=== PATIENT | female | born 1995 | race Asian ===

== ENCOUNTER 2021-08-05 07:25 | Inpatient (IN) | payer OTHER ==
[2021-08-05 08:56] VITALS: BMI 18.7
[2021-08-05 10:22] LABS: INR 0.92 (0.83-1.09); PROTHROMBIN TIME (PATIENT) 11.3 SEC (9.7-13.0)
[2021-08-05 10:25] LABS: ACTIVATED PTT 26.2 SECONDS (25.2-36.5)
[2021-08-05 10:27] LABS: BASO % 0.2 % (0-2.0); EOS % 0.9 % (0-4.5); HEMATOCRIT 38.6 % (32.4-45.2); HEMOGLOBIN 12.7 GM/dL (10.7-15.3); LYMPH % 28.5 % (8-40); MCH 26.2 pg (25.7-33.7); MCHC 32.8 g/dl (32.0-36.0); MEAN CELL VOLUME 79.9 fl (80-96); MEAN PLT VOLUME 12.4 fl (7.5-11.1); MONO % 6.8 % (3.8-10.2); NEUT % 63.6 % (42.8-82.8); PLATELET COUNT 119 10^3/uL (134-434); RBC 4.84 M/mm3 (3.60-5.2); RDW 16.2 % (11.6-15.6); WHITE BLOOD COUNT 7.7 K/mm3 (4.0-10.0)
[2021-08-05 10:40] LABS: CALCIUM 9.7 mg/dL (8.5-10.1)
[2021-08-05 10:44] LABS: CREATININE 0.4 mg/dL (0.55-1.3)
[2021-08-05 10:45] LABS: BLOOD UREA NITROGEN 6.2 mg/dL (7-18)
[2021-08-05] MEDS ORDERED: BUTORPHANOL TARTRATE 1 MG/ML VIAL IVPB PRN ×2 (10:49)
[2021-08-05] MEDS ORDERED: ELECTROLYTE-148 SOLN 1,000 ML IV SCH (11:00)
[2021-08-05] MEDS ORDERED: OXYTOCIN 30 UNITS in 0.9% NS 30 UNIT/500 ML INFUS.BAG IVPB SCH (11:00)
[2021-08-05] MEDS ORDERED: OXYTOCIN 30 UNITS in 0.9% NS 30 UNIT/500 ML INFUS.BAG IVPB ONE (11:32)
[2021-08-05] MEDS ORDERED: BUTORPHANOL TARTRATE 2 MG/ML VIAL ONE (22:21)
[2021-08-05] MEDS ORDERED: PROMETHAZINE HCL 25 MG/1 ML VIAL IVPB PRN (22:24)
[2021-08-05] MEDS ORDERED: WITCH HAZEL 50% (TUCKS) 40 PAD/JAR PAD TP PRN (23:08)
[2021-08-05] MEDS ORDERED: BENZOCAINE 28 GM HEMORRHOIDAL OINTMENT TP PRN (23:08)
[2021-08-05] MEDS ORDERED: ACETAMINOPHEN 325 MG TABLET (FP) PO PRN (23:08)
[2021-08-05] MEDS ORDERED: METHYLERGONOVINE MALEATE 0.2 MG/1 ML AMP IM PRN (23:08)
[2021-08-05] MEDS ORDERED: BISACODYL 10 MG SUPP.RECT RC PRN (23:08)
[2021-08-05] MEDS ORDERED: BENZOCAINE 20% 57 GM BOTTLE TP PRN (23:08)
[2021-08-05] MEDS ORDERED: OXYTOCIN 20 UNITS in 0.9% NS 20 UNIT/1,000 ML INFUS.BAG IV SCH (23:15)
[2021-08-06] MEDS ORDERED: LIDOCAINE HCL 1% PRESERVATIVE FREE - 30ML VIAL ONE (00:54)
[2021-08-06] MEDS ORDERED: OXYTOCIN 20 UNITS in 0.9% NS 20 UNIT/1,000 ML INFUS.BAG IV ONE (00:54)
[2021-08-06 03:21] LABS: CORD BASE EXCESS -7.5 mmol/L (0-2); CORD HCO3 19.6 mmHg (20-29); CORD PCO2 46.6 mmHg (30-78); CORD pH 7.242 (7.14-7.44)
[2021-08-06 03:22] LABS: CORD BASE EXCESS -8.2 mmol/L (0-2); CORD HCO3 21.1 mmHg (20-29); CORD PCO2 59.1 mmHg (30-78); CORD pH 7.17 (7.14-7.44)
[2021-08-06 07:09] LABS: BASO % 0.1 % (0-2.0); HEMATOCRIT 33.4 % (32.4-45.2); HEMOGLOBIN 10.7 GM/dL (10.7-15.3); MCH 25.5 pg (25.7-33.7); MEAN CELL VOLUME 79.6 fl (80-96); MEAN PLT VOLUME 11.5 fl (7.5-11.1); MONO % 5.7 % (3.8-10.2); NEUT % 81.2 % (42.8-82.8); PLATELET COUNT 90 10^3/uL (134-434); RDW 15.8 % (11.6-15.6); WHITE BLOOD COUNT 11.5 K/mm3 (4.0-10.0)
[2021-08-06] MEDS: FERROUS SO4 325 MG TABLET (FP) PO SCH ×3 (08:27→17:17)
[2021-08-06] MEDS: PRENATAL VITAMINS W/ FOLIC ACID TABLET (FP) PO SCH (10:37)
[2021-08-06] MEDS: IBUPROFEN 600 MG TABLET (FP) PO PRN ×2 (10:40→22:40)
[2021-08-06] MEDS ORDERED: FLU VACC QS2021-22(6MOS UP)/PF 60 MCG/0.5 ML SYRINGE IM ONE (11:00)
[2021-08-06] MEDS: SENNOSIDES/DOCUSATE COMBO (SENNA PLUS) TABLET (UD) PO PRN (22:40)
[2021-08-07] MEDS: FERROUS SO4 325 MG TABLET (FP) PO SCH ×3 (09:00→18:03)
[2021-08-07] MEDS: IBUPROFEN 600 MG TABLET (FP) PO PRN ×2 (10:04→21:22)
[2021-08-07] MEDS: PRENATAL VITAMINS W/ FOLIC ACID TABLET (FP) PO SCH (10:04)
[2021-08-07] MEDS: SENNOSIDES/DOCUSATE COMBO (SENNA PLUS) TABLET (UD) PO PRN (21:26)
[2021-08-08] MEDS: PRENATAL VITAMINS W/ FOLIC ACID TABLET (FP) PO SCH (10:34)
[2021-08-08] MEDS: FERROUS SO4 325 MG TABLET (FP) PO SCH ×3 (10:34→17:32)
[2021-08-08] MEDS: SENNOSIDES/DOCUSATE COMBO (SENNA PLUS) TABLET (UD) PO PRN (10:42)
[2021-08-08 10:50] VITALS: BP 102/64; PULSE 86; TEMP 97.9
== END 2021-08-08 17:15 | disposition home or self-care (01) | DRG 560 ==
LOC: JLDR 07:25 → J3W 08-06 03:17
PROVIDERS: ADMIT Obstetrics & Gynecology; ATTEND Obstetrics & Gynecology
PROC: 3E033VJ Introduction of Other Hormone into Peripheral Vein, Percutaneous Approach (ICD-10-PCS; 2021-08-05)
PROC: 10907ZC Drainage of Amniotic Fluid, Therapeutic from Products of Conception, Via Natural or Artificial Opening (ICD-10-PCS; principal; 2021-08-06)
PROC: 0W8NXZZ Division of Female Perineum, External Approach (ICD-10-PCS; 2021-08-06)
PROC: 10E0XZZ Delivery of Products of Conception, External Approach (ICD-10-PCS; 2021-08-06)
DX: O36.5930 Maternal care for other known or suspected poor fetal growth, third trimester, not applicable or unspecified (principal); Z37.0 Single live birth; O69.81X0 Labor and delivery complicated by cord around neck, without compression, not applicable or unspecified; Z3A.37 37 weeks gestation of pregnancy
CPT/HCPCS: 36415; 36600; 59409; 80048; 82803; 85025; 85610; 85730; 86780; 86850; 86900; 86901; 90686; G0008

== ENCOUNTER 2023-03-05 22:25 | Inpatient (IN) | payer OTHER ==
[2023-03-05] MEDS ORDERED: TERBUTALINE SULFATE 1 MG/1 ML VIAL SQ ONE (23:16)
[2023-03-05] MEDS ORDERED: ELECTROLYTE-148 SOLN 500 ML IV ONE (23:20)
[2023-03-05] MEDS ORDERED: BETAMET ACET/BETAMET NA PH 30 MG/5 ML VIAL ONE (23:25)
[2023-03-05] MEDS ORDERED: FENTANYL CITRATE/PF 50 MCG/ML VIAL ONE (23:33)
[2023-03-05] MEDS ORDERED: morphine SULFATE/PF 1 MG/2 ML (2cc Syringe - QUVA) ONE (23:33)
[2023-03-05] MEDS ORDERED: ePHEDrine SULFATE 50 MG/1 ML AMPULE ONE (23:42)
[2023-03-05] MEDS ORDERED: SODIUM CHLORIDE 0.9% P/F 10 ML VIAL IJ ONE (23:42)
[2023-03-05] MEDS ORDERED: CITRIC ACID/SODIUM CITRATE 30 ML UNIT-DOSE CUP PO ONE (23:45)
[2023-03-05 23:48] LABS: BASO % 0.2 % (0-2.0); EOS % 0.1 % (0-4.5); HEMATOCRIT 36.1 % (32.4-45.2); HEMOGLOBIN 11.7 GM/dL (10.7-15.3); LYMPH % 17.6 % (8-40); MCH 23.8 pg (25.7-33.7); MCHC 32.4 g/dl (32.0-36.0); MEAN CELL VOLUME 73.4 fl (80-96); MEAN PLT VOLUME 11.1 fl (7.5-11.1); MONO % 6.6 % (3.8-10.2); NEUT % 75.5 % (42.8-82.8); PLATELET COUNT 184 10^3/uL (134-434); RBC 4.92 M/mm3 (3.60-5.2); RDW 17.9 % (11.6-15.6); WHITE BLOOD COUNT 10.4 K/mm3 (4.0-10.0)
[2023-03-05 23:54] LABS: INR 1.07 (0.83-1.09); PROTHROMBIN TIME (PATIENT) 12.4 SEC (9.7-13.0)
[2023-03-05] MEDS ORDERED: DEXAMETHASONE SOD PHOSPHATE 4 MG/1 ML VIAL ONE (23:56)
[2023-03-05] MEDS ORDERED: METOCLOPRAMIDE HCL INJECTION 10 MG/2 ML VIAL ONE (23:56)
[2023-03-05] MEDS ORDERED: ETOMIDATE 20 MG/10 ML VIAL IVPUSH ONE (23:56)
[2023-03-06 00:07] LABS: POTASSIUM 4.4 mmol/L (3.5-5.1)
[2023-03-06 00:09] LABS: CALCIUM 9.5 mg/dL (8.5-10.1)
[2023-03-06 00:10] LABS: ALBUMIN 2.4 g/dl (3.4-5.0); BLOOD UREA NITROGEN 6.2 mg/dL (7-18)
[2023-03-06] MEDS ORDERED: OXYTOCIN 10 UNITS/ML VIAL ONE (00:12)
[2023-03-06 00:13] LABS: CREATININE 0.6 mg/dL (0.55-1.3)
[2023-03-06 00:15] LABS: BILIRUBIN,TOTAL 0.3 mg/dL (0.2-1); TOT PROT 6.7 g/dl (6.4-8.2)
[2023-03-06] MEDS ORDERED: ONDANSETRON 4 MG/2 ML VIAL ONE (00:33)
[2023-03-06] MEDS ORDERED: METHYLERGONOVINE MALEATE 0.2 MG/1 ML AMP IM PRN (00:39)
[2023-03-06] MEDS ORDERED: IBUPROFEN 800 MG/8 ML IJ IVPB PRN (00:39)
[2023-03-06] MEDS ORDERED: ELECTROLYTE-148 SOLN 1,000 ML IV SCH (00:45)
[2023-03-06] MEDS ORDERED: morphine SULFATE/PF 1 MG/2 ML (2cc Syringe - QUVA) SPIN ONE (01:00)
[2023-03-06] MEDS ORDERED: ONDANSETRON 4 MG/2 ML VIAL IVPUSH PRN (01:00)
[2023-03-06 01:21] LABS: CORD BASE EXCESS -1.7 mmol/L (0-2); CORD HCO3 23.9 mmHg (20-29); CORD PCO2 43.5 mmHg (30-78); CORD pH 7.357 (7.14-7.44)
[2023-03-06 01:38] LABS: HIV INTERPRETATION NEGATIVE (NEGATIVE)
[2023-03-06 02:28] VITALS: BMI 23.6
[2023-03-06] MEDS ORDERED: AZITHROMYCIN IVPB 500 MG/250 ML BAG IVPB ONE ×2 (03:03→03:15)
[2023-03-06 05:43] LABS: HEPATITIS B SURFACE AG MATERN NON-REACTIVE (NONREACTIVE)
[2023-03-06] MEDS: OXYTOCIN 20 UNITS in 0.9% NS 20 UNIT/1,000 ML INFUS.BAG IV SCH ×2 (06:59→08:44)
[2023-03-06] MEDS: IBUPROFEN 600 MG TABLET (FP) PO PRN ×2 (09:27→17:59)
[2023-03-06] MEDS: PRENATAL VITAMINS W/ FOLIC ACID TABLET (FP) PO SCH (09:27)
[2023-03-06] MEDS ORDERED: oxyCODONE HCL 5 MG TABLET PO PRN (12:39)
[2023-03-06] MEDS: oxyCODONE HCL 5 MG TABLET PO PRN (19:57)
[2023-03-06] MEDS: SIMETHICONE 80 MG TAB.CHEW (FP) PO PRN (19:59)
[2023-03-07] MEDS ORDERED: BISACODYL 10 MG SUPP.RECT RC PRN (00:39)
[2023-03-07] MEDS: oxyCODONE HCL 5 MG TABLET PO PRN ×4 (03:39→20:49)
[2023-03-07] MEDS: SIMETHICONE 80 MG TAB.CHEW (FP) PO PRN ×3 (03:40→18:10)
[2023-03-07 07:15] LABS: BASO % 0.1 % (0-2.0); HEMATOCRIT 28.2 % (32.4-45.2); HEMOGLOBIN 9.2 GM/dL (10.7-15.3); LYMPH % 18.2 % (8-40); MCHC 32.5 g/dl (32.0-36.0); MEAN CELL VOLUME 73.8 fl (80-96); MEAN PLT VOLUME 11.5 fl (7.5-11.1); MONO % 5.3 % (3.8-10.2); NEUT % 76.4 % (42.8-82.8); PLATELET COUNT 140 10^3/uL (134-434); RBC 3.82 M/mm3 (3.60-5.2); RDW 17.9 % (11.6-15.6)
[2023-03-07] MEDS: ACETAMINOPHEN 325 MG TABLET (FP) PO PRN ×2 (08:34→12:38)
[2023-03-07] MEDS: PRENATAL VITAMINS W/ FOLIC ACID TABLET (FP) PO SCH (10:00)
[2023-03-07] MEDS: IBUPROFEN 600 MG TABLET (FP) PO PRN (18:09)
[2023-03-07] MEDS: SENNOSIDES/DOCUSATE COMBO (SENNA PLUS) TABLET (UD) PO PRN (22:35)
[2023-03-08] MEDS: IBUPROFEN 600 MG TABLET (FP) PO PRN ×3 (06:30→21:17)
[2023-03-08] MEDS: SIMETHICONE 80 MG TAB.CHEW (FP) PO PRN ×2 (06:30→18:45)
[2023-03-08] MEDS: PRENATAL VITAMINS W/ FOLIC ACID TABLET (FP) PO SCH (09:16)
[2023-03-08] MEDS: ACETAMINOPHEN 325 MG TABLET (FP) PO PRN (09:19)
[2023-03-08] MEDS: ACETAMINOPHEN/CAFFEINE/BUTALBITAL 1 TAB PO PRN (18:44)
[2023-03-08] MEDS: SENNOSIDES/DOCUSATE COMBO (SENNA PLUS) TABLET (UD) PO PRN (21:17)
[2023-03-09] MEDS: IBUPROFEN 600 MG TABLET (FP) PO PRN (06:05)
[2023-03-09 07:19] LABS: BASO % 0.1 % (0-2.0); EOS % 1.1 % (0-4.5); HEMATOCRIT 28.7 % (32.4-45.2); HEMOGLOBIN 9.5 GM/dL (10.7-15.3); LYMPH % 45.4 % (8-40); MCH 24.6 pg (25.7-33.7); MCHC 33.1 g/dl (32.0-36.0); MEAN CELL VOLUME 74.1 fl (80-96); MEAN PLT VOLUME 10.9 fl (7.5-11.1); MONO % 5.8 % (3.8-10.2); NEUT % 47.6 % (42.8-82.8); PLATELET COUNT 175 10^3/uL (134-434); RBC 3.87 M/mm3 (3.60-5.2); RDW 18.2 % (11.6-15.6); WHITE BLOOD COUNT 9.6 K/mm3 (4.0-10.0)
[2023-03-09] MEDS: PRENATAL VITAMINS W/ FOLIC ACID TABLET (FP) PO SCH (09:29)
[2023-03-09 09:40] VITALS: BP 106/70; PULSE 82; RESP 17; TEMP 98
[2023-03-09] MEDS: ACETAMINOPHEN/CAFFEINE/BUTALBITAL 1 TAB PO PRN (10:06)
== END 2023-03-09 13:20 | disposition home or self-care (01) | DRG 540 ==
LOC: JDEL 22:25 → JLDR 23:10 → J3W 03-06 05:25
PROVIDERS: ADMIT Obstetrics & Gynecology; ATTEND Obstetrics & Gynecology
PROC: 10D00Z1 Extraction of Products of Conception, Low, Open Approach (ICD-10-PCS; principal; 2023-03-06)
DX: O32.8XX0 Maternal care for other malpresentation of fetus, not applicable or unspecified (principal); O60.14X0 Preterm labor third trimester with preterm delivery third trimester, not applicable or unspecified; O36.5930 Maternal care for other known or suspected poor fetal growth, third trimester, not applicable or unspecified; O40.3XX0 Polyhydramnios, third trimester, not applicable or unspecified; Z3A.34 34 weeks gestation of pregnancy; Z37.0 Single live birth
CPT/HCPCS: 36415; 36600; 80053; 82803; 85025; 85610; 85730; 86762; 86780; 86850; 86900; 86901; 87340; 87389; 88307-TC; 94010; C9803-CS; U0003; U0005